=== PATIENT | female | born 1940 | race Caucasian/White ===

== ENCOUNTER 2016-08-08 15:31 | Emergency (ER) | payer OTHER, BC ==
--- NOTE | 2016-08-08 16:39 | EDPHY ---
H & P Stated Complaint: I do not want to live anymore Source: Patient Exam Limitations: No limitations - Medical/Surgical History Hx Asthma: No Hx Chronic Respiratory Disease: No Hx Diabetes: No Hx Cardiac Disease: Yes Hx Renal Disease: No Hx Cirrhosis: No Hx Alcoholism: No Hx HIV/AIDS: No Hx Splenectomy or Spleen Trauma: No Other PMH: Anxiety, ischemic stroke, GERD, anemia, CAD, hypertension - Family History Significant Family History: No pertinent family hx - Social History Smoking Status: Never smoked Alcohol Use: Rarely Drug Use: None Time Seen by Provider: 08/08/16 15:32 HPI/ROS: HPI: 76-year-old female presents to emergency department with chief concern "I do not want to live anymore." Began feeling this way 2 months ago after she fell down 14 steps and awoke in a rehab facility in [place]. Feels her family does not wish to care for her anymore. Has a plan to obtain a kitchen knife and kill herself. Has a history of depression and suicide attempt in the past. Was hospitalized for depression when her 24 years ago. No homicidal ideation. No visual or auditory hallucination. Denies fever, chills , URI symptoms, shortness of breath, chest pain, abdominal pain, nausea, vomiting, diarrhea, urinary symptoms, back or flank pain. No drug or alcohol use. Past medical history notable for anxiety, ischemic stroke, GERD, anemia, CAD, cognitive communication defect, hypertension. ROS:10 point review of systems is negative other than as stated in HPI (Leann Ford) - Physical Exam Exam: General: Awake, alert, calm, cooperative. No acute distress. Head: Normalocephalic. Atraumatic. EENT: PERRLA. EOMI. No pallor or injection. Anicteric. No nystagmus. No injection. TMs intact bilaterally with normal landmarks. No rhinnorhea, nasal passages clear. Oropharynx without redness, exudates, or lesions. Tonsils 2+ bilaterally, no exudates. Neck: Supple, nontender. No lymphadenopathy. Full range of motion. No meningismus. Respiratory: Breathing unlabored. Breath sounds equal bilaterally and clear to auscultation. No adventitious sounds. CV: Chest nontender, atraumatic. Heart rate regular. No murmur, distal pulses 2+ bilaterally. Brisk cap refill all extremities. GI: Abdomen soft, nontender. Bowel sounds normoactive and positive x4 quadrants. : No suprapubic tenderness. No CVA or flank tenderness. Neuro: Alert. Oriented x 3. Speech clear. Nonfocal cranial nerves throughout. Sensation intact all extremities. Skin: Skin warm, dry, intact. No rashes, abrasions, or lacerations. Skin turgor normal. Extremities: Full range of motion in all 4 extremities. Strength 5+ all extremities. Mental status: Depressed affect, tearful (Leann Ford) Constitutional: Initial Vital Signs Temperature (C) 36.5 C 08/08/16 16:00 Heart Rate 68 08/08/16 16:00 Respiratory Rate 18 08/08/16 16:00 Blood Pressure 128/69 H 08/08/16 16:00 O2 Sat (%) 91 L 08/08/16 16:00 O2 Delivery Mode Room Air Allergies/Adverse Reactions: No Known Allergies Allergy (Unverified 08/08/16 17:27) Home Medications: Medication Instructions Recorded Acetaminophen 08/08/16 Aspirin 81mg (*) 08/08/16 Effexor Xr 75MG (*) 08/08/16 Hydrochlorothiazide 08/08/16 Klonopin 08/08/16 Klor-Con 20 meq (*) 08/08/16 Metoprolol Tartrate 08/08/16 Omeprazole 08/08/16 Oxycodone HCl 08/08/16 Oxycontin 08/08/16 Prednisolone 08/08/16 Senna-Docusate Sodium Tablet 08/08/16 Medical Decision Making - Diagnostics EKG Interpretation: EKG interpreted by me shows normal sinus rhythm with normal interval. There is left axis deviation. QRS is normal there is no significant ST elevation or depression. The rate is 74 (Sarbjit Sullivan) ED Course/Re-evaluation: 76-year-old female presents to emergency department brought in by EMS from a Rehab in [place] with suicidal ideation. She has a history of depression with previous suicide attempt when she tried to take pills. Was hospitalized in the past for depression after her 24 years ago. Labs and urine are pending. 1830: Medically clear, mental health evaluation pending. (Leann Ford) Re-evaluation at 11:45 p.m.. Patient is complaining of having some had some chest discomfort. EKG is performed The patient tells me that the chest pain just started it is in the central chest. She tells me it woke her up from sleep. She has never had similar symptoms before or problems with her heart. When I asked her how chest discomfort felt she told me just like a heart attack would feel. We will perform troponin and serial enzymes and EKG. (Sarbjit Sullivan) 23:45 Care assumed by me from Dr. Sullivan. Pt presenting to the ED with depression. Had episode of chest 15 minutes ago. ECG shows no acute changes. Troponin has been sent. If negative, will plan on 6 hour troponin and ECG. 0600 repeat ECG is unchanged. Troponin is unchanged at 0.023. Patient has been sleeping comfortably overnight. She has been seen by the mental health sorter/assay tech. The knee more collaborating information before they can complete the assessment. I have filled out a mental health hold. 0700 patient signed out to Dr. Ventura pending completion of evaluation. (Jimenez Smith) Differential Diagnosis: Differential includes but is not limited to functional and major depression, situational depression, medication side-effect, anxiety, schizophrenia, bipolar , drug or alcohol related, acute psychosis, metabolic derangement, infection ( Leann Ford) Other Provider: Care assumed at 6:45 a.m. with plan for psychiatric evaluation. Per the overnight physician, Dr. Smith she is medically cleared including from a chest pain standpoint for psychiatric evaluation. The patient will be transferred to [facility] for inpatient psychiatric hospital bed not available at this facility, in stable condition; accepting physician is Dr. Cheek, accepted at 12:47 p.m. (Krystian Ventura) Care Turn Over: Dr. Smith at 0000 (Sarbjit Sullivan) - Data Points Laboratory Results: Laboratory Results 08/08/16 16:59 08/08/16 16:59 Medications Given: Discontinued Medications Aspirin (Aspirin) 81 mg PO EDNOW ONE Stop: 08/09/16 08:24 Last Admin: 08/09/16 09:25 Dose: 81 mg Clonazepam (Klonopin) 0.5 mg PO EDNOW ONE Stop: 08/08/16 19:40 Last Admin: 08/08/16 20:00 Dose: 0.5 mg Clonazepam (Klonopin) 0.5 mg PO EDNOW ONE Stop: 08/09/16 14:42 Last Admin: 08/09/16 14:45 Dose: 0.5 mg Hydrochlorothiazide (Microzide) 12.5 mg PO DAILY ADRIAN Stop: 02/05/17 08:59 Last Admin: 08/09/16 09:26 Dose: 12.5 mg Metoprolol Tartrate (Lopressor) 100 mg PO EDNOW ONE Stop: 08/08/16 19:40 Last Admin: 08/08/16 20:26 Dose: 100 mg Oxycodone HCl (Oxycontin) 20 mg PO EDNOW ONE Stop: 08/08/16 19:41 Last Admin: 08/08/16 20:25 Dose: 20 mg Oxycodone HCl (Oxycontin) 20 mg PO BID ADRIAN Stop: 08/19/16 08:59 Last Admin: 08/09/16 09:26 Dose: 20 mg Potassium Chloride (Klor-Con) 20 meq PO DAILY ADRIAN Stop: 02/05/17 08:59 Last Admin: 08/09/16 09:30 Dose: 20 meq Prednisone (Prednisone) 2.5 mg PO ONCE ONE Stop: 08/09/16 08:36 Last Admin: 08/09/16 09:56 Dose: 2.5 mg Venlafaxine HCl (Effexor Xr) 75 mg PO DAILY [facility] Stop: 02/05/17 08:59 Last Admin: 08/09/16 09:30 Dose: 75 mg Departure - Departure Disposition: Other Psych, Not [facility] Clinical Impression: Suicidal ideation, Severe major depression Condition: Good Instructions: Depression (ED) Referrals: NARGIS STACK MD [Other] - As per Instructions
[2016-08-08 17:13] LABS: % IMMATURE GRANULYOCYTES 0.3 % (0.0-1.1); ABSOLUTE IMMATURE GRANULOCYTES 0.01 10^3/uL (0.00-0.10); ADD DIFF? NO; ADD MORPH? NO; ADD SCAN? NO; ATYPICAL LYMPHOCYTE FLAG 40 (0-99); FRAGMENT RBC FLAG 0 (0-99); HEMATOCRIT 38.2 % (38.0-47.0); HEMOGLOBIN 12.3 g/dL (12.6-16.3); LEFT SHIFT FLG 0 (0-99); LIPEMIA HEMOLYSIS FLAG 80 (0-99); MEAN CELL HEMOGLOBIN 29.4 pg (27.9-34.1); MEAN CELL HEMOGLOBIN CONCENTR. 32.2 g/dL (32.4-36.7); MEAN CELL VOLUME 91.2 fL (81.5-99.8); MEAN PLATELET VOLUME 10.4 fL (8.7-11.7); PLATELET CLUMPS FLAG 0 (0-99); PLATELET COUNT 207 10^3/uL (150-400); RED BLOOD CELL COUNT 4.19 10^6/uL (4.18-5.33); RED CELL DISTRIBUTION WIDTH 15.9 % (11.5-15.2)
[2016-08-08 17:27] LABS: ANION GAP 9 mEq/L (8-16); CARBON DIOXIDE 30 mEq/l (22-31); CHLORIDE 101 mEq/L (97-110); CREATININE 0.9 mg/dL (0.6-1.0); ETHANOL SERUM < 10 mg/dL (0-10); GLOMERULAR FILTRATION RATE > 60; GLUCOSE 94 mg/dL (70-100); POTASSIUM 4.1 mEq/L (3.5-5.2); SODIUM 140 mEq/L (134-144)
[2016-08-08 18:15] LABS: COLOR YELLOW; LEUKOCYTE ESTERASE,URINE NEGATIVE (NEGATIVE); NITRITE,URINE NEGATIVE (NEGATIVE)
[2016-08-08] MEDS ORDERED: METOPROLOL TARTRATE 100 MG TAB PO ONE (19:39)
[2016-08-08] MEDS ORDERED: clonazePAM 0.5 MG TAB PO ONE (19:39)
--- NOTE | 2016-08-08 23:47 | CPEKG ---
Heart Rate: 74 RR Interval: 811 P-R Interval: 164 QRSD Interval: 82 QT Interval: 388 QTC Interval: 431 P Hitchita: 46 QRS Hitchita: -22 T Wave Hitch[place]: 51 EKG Severity - ABNORMAL ECG - EKG Impression: SINUS RHYTHM EKG Impression: BORDERLINE LEFT AXIS DEVIATION EKG Impression: ABNRM R PROG, CONSIDER ASMI OR LEAD PLACEMENT EKG Impression: BORDERLINE T ABNORMALITIES, ANTERIOR LEADS Electronically Signed By: Sarbjit Sullivan 09-Aug-2016 00:12:49
--- NOTE | 2016-08-09 05:46 | CPEKG ---
Heart Rate: 75 RR Interval: 800 P-R Interval: 172 QRSD Interval: 84 QT Interval: 384 QTC Interval: 429 P Douglass: 49 QRS Douglass: -32 T Wave Douglass: 55 EKG Severity - ABNORMAL ECG - EKG Impression: SINUS RHYTHM EKG Impression: LEFT AXIS DEVIATION EKG Impression: NONSPECIFIC T ABNORMALITIES, ANT-LAT LEADS Electronically Signed By: Jimenez Smith 09-Aug-2016 06:30:42
[2016-08-09] MEDS ORDERED: ASPIRIN 81 MG CHEWABLE TAB PO ONE (08:23)
[2016-08-09] MEDS ORDERED: METOPROLOL TARTRATE 100 MG TAB PO SCH (08:30)
[2016-08-09] MEDS ORDERED: predniSONE 20 MG TAB PO ONE (08:35)
[2016-08-09] MEDS ORDERED: SENNOSIDES/DOCUSATE SODIUM TAB PO PRN (08:36)
[2016-08-09] MEDS ORDERED: VENLAFAXINE XR 75 MG CAP PO SCH (09:00)
[2016-08-09] MEDS ORDERED: POTASSIUM CL 20 MEQ TAB PO SCH (09:00)
[2016-08-09] MEDS ORDERED: HYDROCHLOROTHIAZIDE 12.5 MG CAP PO SCH (09:00)
[2016-08-09 10:10] VITALS: PULSE 69; RESP 18; TEMP 98.4; O2SAT 94
[2016-08-09] MEDS ORDERED: clonazePAM 0.5 MG TAB PO ONE (14:41)
[2016-08-09 15:20] VITALS: BP 126/87
== END 2016-08-09 15:16 ==
LOC: EDUNIT#
DX: R45.851 Suicidal ideations (principal); F32.9 Major depressive disorder, single episode, unspecified; I25.10 Atherosclerotic heart disease of native coronary artery without angina pectoris; I10 Essential (primary) hypertension; Z79.82 Long term (current) use of aspirin
CPT/HCPCS: 80305; G0480